=== PATIENT | female | born 1950 | race Two or more races ===

== ENCOUNTER 2022-06-11 09:54 | Emergency (ER) | payer MEDICARE ==
[~2022-06-11] VITALS: Ht 162.6 cm; Wt 82.0 kg
[2022-06-11 10:52] LABS: BASOPHILS % 0.7 % (0.0-2.0); EOSINOPHILS % 1.3 % (0.0-5.0); HEMOGLOBIN. 13.2 g/dL (12.0-16.0); LYMPHOCYTES % 19.2 % (20.0-50.0); MEAN CORPUSCULAR HEMOGLOBIN 27.6 pg (28.0-32.0); MEAN CORPUSCULAR VOLUME 83.6 fL (81.0-99.0); MEAN PLATELET VOLUME 8.8 fl (7.4-10.4); MONOCYTES % 6.6 % (2.0-8.0); NEUTROPHILS % 72.2 % (40.0-76.0); PLATELET 401 x1000/uL (130-400); RED BLOOD CELL COUNT 4.78 mill/uL (4.2-5.4); RED CELL DISTRIBUTION WIDTH 15.1 % (11.6-14.6)
[2022-06-11 10:57] LABS: CHLORIDE 106 mEq/L (98-107)
[2022-06-11] MEDS ORDERED: KETOROLAC 30MG/ML VIAL IV ONE (12:15)
[2022-06-11] MEDS ORDERED: IOHEXOL-350 100 ML BOTTLE ONE (12:40)
[2022-06-11] MEDS ORDERED: TOPUD PO (13:15)
[2022-06-11 13:34] VITALS: BP 112/66
== END 2022-06-11 13:39 | disposition home or self-care (01) ==
LOC: ER 09:54
DX: R07.89 Other chest pain (principal); Z85.6 Personal history of leukemia
CPT/HCPCS: 36415; 71045; 71275; 80053; 83880; 84484; 85025; 93005; 99285; Q9967